=== PATIENT | male | born 1945 | race Caucasian/White ===

== ENCOUNTER 2017-11-19 16:13 | Emergency (ER) | payer MEDICARE ==
[~2017-11-19] VITALS: Ht 188 cm; Wt 174.4 kg
[~2017-11-19 16:13] MED LIST: None per pt; OXYC-302 PO
[2017-11-19 16:17] VITALS: BP 170/99
[2017-11-19 17:13] LABS: BASOPHILS # (AUTO) 0.03 x10^3/uL (0-0.1); BASOPHILS % (AUTO) 0 % (0-1); EOSINOPHILS # (AUTO) 0.57 x10^3/uL (0-0.4); EOSINOPHILS % (AUTO) 6 % (1-7); LYMPHOCYTES # (AUTO) 2.56 x10^3/uL (1-3.4); LYMPHOCYTES % (AUTO) 25 % (22-44); MD NO; MEAN CORPUSCULAR HEMOGLOBIN 33.1 pg (27.5-34.5); MEAN CORPUSCULAR HGB CONC 34.4 g/dL (33.2-36.2); MEAN CORPUSCULAR VOLUME 96.3 fL (81-97); MEAN PLATELET VOLUME 7.9 fL (7.4-10.4); MONOCYTES # (AUTO) 0.89 x10^3/uL (0.2-0.8); MONOCYTES % (AUTO) 9 % (2-9); NEUTROPHILS # (AUTO) 6.36 x10^3/uL (1.8-6.8); NEUTROPHILS % (AUTO) 61 % (42-75); PLATELET COUNT 252 x10^3/uL (130-400); RED BLOOD COUNT 4.83 x10^6/uL (4.38-5.82)
[2017-11-19 17:19] LABS: ANION GAP 8 mmol/L (5-15); CALCIUM 9.1 mg/dL (8.5-10.1); CHLORIDE 112 mmol/L (98-107); CREATININE 1.02 mg/dL (0.7-1.3)
[2017-11-19 17:26] LABS: HCT (SEDRATE) 46.5 % (39.2-51.8)
== END 2017-11-19 18:14 | disposition home or self-care (01) ==
LOC: ED 17:26
DX: I77.6 Arteritis, unspecified (principal); F17.200 Nicotine dependence, unspecified, uncomplicated
CPT/HCPCS: 36415; 80048; 82040; 85025; 85651; 99284

== ENCOUNTER 2018-03-29 15:22 | Emergency (ER) | payer MEDICARE ==
[~2018-03-29] VITALS: Ht 188 cm; Wt 76.9 kg
[2018-03-29 15:34] VITALS: BP 195/95
== END 2018-03-29 16:15 | disposition home or self-care (01) ==
LOC: ED 16:12
DX: H66.92 Otitis media, unspecified, left ear (principal); J06.9 Acute upper respiratory infection, unspecified; I10 Essential (primary) hypertension; F17.200 Nicotine dependence, unspecified, uncomplicated
CPT/HCPCS: 99283